=== PATIENT | female | born 1950 | race Caucasian/White ===

== ENCOUNTER 2017-05-31 22:32 | Observation (INO) | payer MEDICARE ==
[~2017-05-31] VITALS: Ht 165.1 cm; Wt 77.8 kg
[2017-05-31 22:57] LABS: BASO # 0.1 (0.0-0.2); BASO % 0.4 % (0.0-2.0); EOS % 0.2 % (0-4.0); GRAN % 86.5 % (42.2-75.2); LYMPH # 1.3 (1.2-3.4); LYMPH % 7.2 % (20.0-51.0); MEAN CELL VOLUME 86 fl (80.0-100.0); MEAN CORPUSCULAR HGB CONC 33 g/dl (33.0-37.0); MEAN PLATELET VOLUME 10.1 fl (7.4-10.4); MONO # 0.9 (0.1-0.6); MONO % 4.9 % (1.7-9.3); PLATELET COUNT 260 K/mm3 (130-400); RED BLOOD COUNT 3.66 M/mm3 (4.10-5.30); REDCELL DISTRIBUTION WIDTH-CV 14.7 % (11.5-14.5)
[2017-05-31 23:04] LABS: HEMATOCRIT 31.4 % (37.0-47.0); HEMOGLOBIN 10.5 g/dl (12.5-16.0); MEAN CORPUSCULAR HEMOGLOBIN 29 pg (27.0-31.0)
[2017-05-31 23:09] LABS: ALBUMIN 3.6 gm/dL (3.5-5.0); BILIRUBIN,TOTAL 0.2 mg/dL (0.0-1.0); C-REACTIVE PROTEIN 1.6 mg/dL (0.0-0.9); CALCIUM 8.8 mg/dL (8.4-10.2); CREATININE, serum 1.6 mg/dL (0.52-1.25); POTASSIUM 4.1 mmol/L (3.4-5.0); TOTAL PROTEIN 6.6 gm/dL (6.4-8.2)
[2017-05-31 23:21] LABS: ERYTHROCYTE SEDIMENTATION RATE 29 mm/hr (0-30)
[2017-06-01 00:17] LABS: COLLECTION METHOD CLEAN CATCH
[2017-06-01] MEDS ORDERED: ZOLOFT 100MG100 MG PO (00:18)
[2017-06-01] MEDS ORDERED: ZANTAC 150MG T150 MG PO (00:19)
[2017-06-01] MEDS ORDERED: ZESTRIL 5MG5 MG PO (00:19)
[2017-06-01] MEDS ORDERED: ZYLOPRIM 100MG100 MG PO (00:19)
[2017-06-01] MEDS ORDERED: PREDNISONE 5MG5 MG PO (00:20)
[2017-06-01 00:26] LABS: PH 6 (5-8); SQUAMOUS EPITHELIAL 0-2 /hpf; URINE APPEARANCE Clear; URINE BACTERIA None Seen /hpf; URINE BILIRUBIN Negative (NEGATIVE); URINE COLOR Yellow; URINE GLUCOSE Negative (NEGATIVE); URINE KETONE Negative (NEGATIVE); URINE PROTEIN(semi-quant) 1+ (NEGATIVE); URINE RBC 0-2 /hpf; URINE UROBILINOGEN Negative (NEGATIVE)
[2017-06-01 00:27] LABS: URINE BLOOD 1+ (NEGATIVE); URINE LEUKOCYTE ESTERASE Trace (NEGATIVE); URINE NITRATE Negative (NEGATIVE)
[2017-06-01 02:17] VITALS: BP 152/71; PULSE 95; TEMP 97.9
[2017-06-01 07:03] LABS: BASO % 0.2 % (0.0-2.0); GRAN % 88.6 % (42.2-75.2); LYMPH # 0.7 (1.2-3.4); LYMPH % 3.5 % (20.0-51.0); MEAN CELL VOLUME 89 fl (80.0-100.0); MEAN CORPUSCULAR HGB CONC 32 g/dl (33.0-37.0); MEAN PLATELET VOLUME 10.6 fl (7.4-10.4); MONO # 1.4 (0.1-0.6); MONO % 6.8 % (1.7-9.3); PLATELET COUNT 279 K/mm3 (130-400); RED BLOOD COUNT 3.72 M/mm3 (4.10-5.30); REDCELL DISTRIBUTION WIDTH-CV 14.8 % (11.5-14.5)
[2017-06-01 07:13] LABS: CALCIUM 8.6 mg/dL (8.4-10.2); CREATININE, serum 1.55 mg/dL (0.52-1.25); POTASSIUM 4.8 mmol/L (3.4-5.0)
[2017-06-01 07:27] LABS: HEMATOCRIT 33.1 % (37.0-47.0); HEMOGLOBIN 10.7 g/dl (12.5-16.0); MEAN CORPUSCULAR HEMOGLOBIN 29 pg (27.0-31.0)
[2017-06-01 07:55] VITALS: BP 117/57; PULSE 91; TEMP 98.2
[2017-06-01 11:35] VITALS: BP 107/57; PULSE 64; TEMP 98.7
[2017-06-01 16:12] VITALS: BP 103/55; PULSE 71; TEMP 98.7
[2017-06-01 19:56] VITALS: BP 107/51; PULSE 73; TEMP 98.7
[2017-06-01 23:34] VITALS: BP 115/64; PULSE 60; TEMP 98.1
[2017-06-02 04:37] VITALS: BP 122/60; PULSE 44; TEMP 98
[2017-06-02 06:27] LABS: BASO % 0.1 % (0.0-2.0); GRAN # 14.4 (1.4-6.5); GRAN % 88.5 % (42.2-75.2); LYMPH # 0.8 (1.2-3.4); MEAN CELL VOLUME 88 fl (80.0-100.0); MEAN CORPUSCULAR HGB CONC 33 g/dl (33.0-37.0); MEAN PLATELET VOLUME 11.2 fl (7.4-10.4); MONO # 0.8 (0.1-0.6); MONO % 5.2 % (1.7-9.3); PLATELET COUNT 249 K/mm3 (130-400); RED BLOOD COUNT 3.52 M/mm3 (4.10-5.30); REDCELL DISTRIBUTION WIDTH-CV 15.1 % (11.5-14.5)
[2017-06-02 06:30] LABS: HEMATOCRIT 31.1 % (37.0-47.0); HEMOGLOBIN 10.1 g/dl (12.5-16.0); MEAN CORPUSCULAR HEMOGLOBIN 29 pg (27.0-31.0)
[2017-06-02 06:43] LABS: CREATININE, serum 1.76 mg/dL (0.52-1.25); POTASSIUM 4.7 mmol/L (3.4-5.0)
[2017-06-02 08:14] VITALS: BP 120/59; PULSE 55; TEMP 97.8
== END 2017-06-02 10:46 | disposition home or self-care (01) ==
LOC: COL.ER 22:32 → MEDICAL 06-01 01:21
PROVIDERS: Emergency Medicine; Nurse Practitioner; Physician Assistant
DX: M06.9 Rheumatoid arthritis, unspecified (principal); M16.12 Unilateral primary osteoarthritis, left hip; N39.0 Urinary tract infection, site not specified; D72.829 Elevated white blood cell count, unspecified; N18.9 Chronic kidney disease, unspecified; Z88.1 Allergy status to other antibiotic agents; M79.7 Fibromyalgia; F32.9 Major depressive disorder, single episode, unspecified; E78.5 Hyperlipidemia, unspecified; M48.061 Spinal stenosis, lumbar region without neurogenic claudication
CPT/HCPCS: G0378; G8978-GP; G8979-GP; G8987-GO; G8988-GO; J0696; J1170; J2405; J2930; J3301; J7030; Q9967